=== PATIENT | female | born 1990 | race Hispanic/Latino ===

== ENCOUNTER 2017-05-22 17:33 | Observation (INO) | payer MEDICAID ==
[~2017-05-22] VITALS: Ht 154.9 cm; Wt 59.9 kg
[2017-05-22] VITALS (12 sets, daily range): BP systolic 106–117; BP diastolic 54–73
--- NOTE | 2017-05-22 17:20 | NUR ---
Received report from prior shift on patient. Patient here via EMS to OB unit. Patient claims she fell down 5 flights of steps. Patient states that she fell on her back and has pain on left side and back rating it a 7 on scale of 1 to 10.
[~2017-05-22 17:33] MED LIST: FERR SULFATE325 MG PO; LEVOTHYROXIN50 MCG PO; LEVOTHYROXIN75 MCG PO; LORTAB 5/3255 MG PO; PRENATABS FA PO; [UNRECOGNIZED DRUG - OTHER]
[2017-05-22 17:54] LABS: URINE BILIRUBIN - DIPSTICK NEGATIVE (NEGATIVE); URINE BLOOD DIPSTICK NEGATIVE (NEGATIVE); URINE CLARITY CLEAR; URINE COLOR YELLOW; URINE GLUCOSE - DIPSTICK NEGATIVE (NEGATIVE); URINE KETONE NEGATIVE (NEGATIVE); URINE LEUK ESTERASE TRACE (NEGATIVE); URINE NITRITE - DIPSTICK NEGATIVE (Negative); URINE PROTEIN - DIPSTICK NEGATIVE (NEG-TRACE); URINE UROBILINOGEN - DIPSTICK 0.2 E.U./dL (0.2)
[2017-05-22 17:56] LABS: BARBITURATES NEGATIVE (NEGATIVE); COCAINE NEGATIVE (NEGATIVE); METHADONE NEGATIVE (NEGATIVE); OXCYCODONE NEGATIVE (NEGATIVE); TETRAHYDROCANNABIONOL NEGATIVE (NEGATIVE); TRICYLIC ANTIDEPRESSANTS NEGATIVE (NEGATIVE)
--- NOTE | 2017-05-22 18:00 | NUR ---
Dr. Gill in room visiting with patient. Order for urine to be sent to check for blood and if all fine patient may be discharged to home.
--- NOTE | 2017-05-22 18:30 | NUR ---
Patient on external monitor. heart rate of 145, contractions every 2 to 3 minutes patient rates as 7 on scale of 1 to 10.
--- NOTE | 2017-05-22 18:45 | NUR ---
Report given to oncoming shift on patient.
--- NOTE | 2017-05-22 19:05 | NUR ---
1844: REPORT RECEIVED FROM MAGNO LÓPEZ RN ON PT STATUS. PT RESTING IN BED DRINKING PO FLUIDS. STATES SHE FEELS HER "STOMACH" TIGHTENING. MILD CONTRACTIONS NOTED. FETUS VERY ACTIVE. DENIES VAGINAL BLEEDING OR SROM. SISTER IN LAW INTERPRETS FOR THIS NURSE. 1904: DR. LARSON NOTIFIED OF PT STATUS. ORDERS RECEIVED.
--- NOTE | 2017-05-22 19:39 | NUR ---
193: Procardia 10mg po given per physicians orders. Lactated ringers bolus started per med pump. Orders received to give 1000 ml fluid. Pt denies feeling any contractions. No contractions palpated by RN. Fetus active. monitoring with poor tracing due to gestational age. 2013: Pt uses restroom. Voids 600 cc clear yellow urine.
--- NOTE | 2017-05-22 21:10 | NUR ---
Pt marking on strip when she feels the beginning of a contraction and marking when she feels the end. No contractions palpated by RN during these periods. According to pt's acosta, contractions are lasting 10-15 seconds in length. Fetus remains active. Fht's basing 145-150's.
--- NOTE | 2017-05-22 21:42 | NUR ---
Pt continues to contract. Orders received to keep pt overnight and continue to hydrate with IV fluids.
--- NOTE | 2017-05-22 22:00 | NUR ---
Pt has order for Vistaril 50mg po. Asks to wait to take medication. Sister in law Yolanda continues to interpret for RN.
[2017-05-23 01:15] VITALS: BP 101/61
--- NOTE | 2017-05-23 02:55 | NUR ---
Pt sleeping. IV infusing per med pump at 150cc/hr.
[2017-05-23 06:15] VITALS: BP 93/51
--- NOTE | 2017-05-23 06:20 | NUR ---
External monitor applied on LLQ. Mother holds US so reading of heart tones can be recorded. Fetus has hiccups inutero. Pt states fetus is moving. RN audibly hears heart tones of 140. IV continues to infuse at 150cc/hour per med pump. No complaints of pain.
--- NOTE | 2017-05-23 07:05 | NUR ---
patient lying in bed awake. denies pain, vaginal bleeding or leaking of amniotic fluid. abdomen palpate soft. admits to movement. awaiting ob ultrasound. patient has no concerns at this time. sister at bedside.
--- NOTE | 2017-05-23 07:05 | NUR ---
Bedside report given to Ivory Quinones RN on pt status.
[2017-05-23 08:20] VITALS: BP 102/57
--- NOTE | 2017-05-23 08:20 | NUR ---
off efm to void. no contractions palpated or monitored. continues to deny pain. will continue to monitor. took and tolerated breakfast.
--- NOTE | 2017-05-23 09:30 | NUR ---
off to go have ultrasound done in radiology dept.
--- NOTE | 2017-05-23 10:10 | NUR ---
PATIENT CONTINUES TO DENY PAIN OR VAGINAL BLEEDING. ABDOMEN PALPATE SOFT. DR LARSON NOTIFIED VIA CELL PHONE OF US REPORT. NO NEW ORDERS RECEIVED.
--- NOTE | 2017-05-23 10:10 | NUR ---
PATIENT BACK FROM RADIOLOGY DEPT IN ACCOMPANIED BY EDGER MACHINE SETTER. VERBAL REPORT RECEIVED FROM JESSICA EDGER MACHINE SETTER OF CX 5CM LONG, PLACENTA LOW LYING, 1CM FROM OS AND TRANVERSE FETUS. MD TO BE NOTIFIED OF SAME PRIOR TO DISCHARGE.
--- NOTE | 2017-05-23 10:20 | NUR ---
IV ACCESS REMOVED. INSTRUCTIONS GIVEN PER INSTRUCTIONS LESS THAN 37 WEEKS GESTATION. PATIENT INSTRUCTED TO RETURN TO HOSPITAL IMMEDIATELY FOR ANY VAGINAL BLEEDING, LEAKING OF AMNIOTIC FLUID, PAIN OR TRAUMA TO ABDOMEN. VERBALISE UNDERSTANDING OF SAME. ALSO INSTRUCTED TO CALL TO MAKE APPT TO BE SEEN IN OFFICE THIS WEEK. LEFT UNIT FOR HOME IN STABLE CONDITION ACCOMPANIED BY FAMILY, WITH ALL BELONGINGS.
== END 2017-05-23 10:20 | disposition home or self-care (01) | DRG 392 ==
LOC: OB 17:33 → OBOP 17:33 → OB 17:33 → OBOP 05-23 → OB 05-23 00:01
PROVIDERS: ADMIT Obstetrics & Gynecology; ATTEND Obstetrics & Gynecology
DX: R10.9 Unspecified abdominal pain (principal); Z33.1 Pregnant state, incidental; W10.9XXA Fall (on) (from) unspecified stairs and steps, initial encounter
CPT/HCPCS: G0378

== ENCOUNTER 2022-11-06 11:09 | Emergency (ER) | payer OTHER ==
[~2022-11-06] VITALS: Ht 154.9 cm; Wt 63.5 kg
[2022-11-06] VITALS (9 sets, daily range): BP systolic 105–135; BP diastolic 62–82
[2022-11-06 11:38] LABS: BASO% 0.6 % (0-3); EOS% 2.4 % (0-8); IMMATURE GRANULOCYTES 0.7 % (0.0-5.0); LYMPH% 53.7 % (15-41); MEAN CORPUSCULAR HGB 29.3 pG CALC (26.0-32.0); MONO% 7.3 % (2-13); NEUT# 3.63 thou/uL (2.00-7.15); NEUT% 35.3 % (42-76); RED BLOOD COUNT 4.34 mill/uL (4.20-5.60); RED CELL DISTRI WIDTH 12.5 % (11.5-15.5)
[2022-11-06 11:39] LABS: HEMATOCRIT 38.5 % (37.0-47.0); HEMOGLOBIN 12.7 g/dl (12.0-16.0); MEAN CELL VOLUME 88.7 fL CALC (80.0-100.0)
[2022-11-06 11:48] LABS: ALBUMIN 4.9 g/dL (3.2-5.0); ALKALINE PHOSPHATASE 90 u/l (38-126); ANION GAP 15 (6-22 (CALC)); BILIRUBIN, TOTAL 0.1 mg/dL (0.02-1.3); BUN 12 mg/dL (7-17); BUN/CREATININE RATIO 18 (12-20 (CALC)); CARBON DIOXIDE 25 mmol/l (22-30); CHLORIDE 101 mmol/l (95-108); CREATININE 0.7 mg/dL (0.5-1.0); GFR FOR AFR.AMER. > 60 ML/MIN (>=60 (CALC)); GFR OTHER RACES > 60 ML/MIN (>=60 (CALC)); LIPASE 179 u/l (23-300); POTASSIUM 3.4 mmol/l (3.5-5.1); SGOT/AST 31 u/l (14-36); SODIUM 138 mmol/l (137-146); TOTAL PROTEIN 8.1 g/dL (6.3-8.2)
[2022-11-06 12:26] LABS: URINE BILIRUBIN - DIPSTICK NEGATIVE (NEGATIVE); URINE BLOOD DIPSTICK TRACE-INTACT (NEGATIVE); URINE GLUCOSE - DIPSTICK NEGATIVE (NEGATIVE); URINE KETONE NEGATIVE (NEGATIVE); URINE LEUK ESTERASE NEGATIVE (NEGATIVE); URINE PROTEIN - DIPSTICK NEGATIVE (NEG-TRACE); URINE SPECIFIC GRAVITY <=1.005; URINE UROBILINOGEN - DIPSTICK 0.2 E.U./dL (0.2)
[2022-11-06 12:27] LABS: URINE COLOR STRAW; URINE NITRITE - DIPSTICK NEGATIVE (Negative)
== END 2022-11-06 14:02 | disposition home or self-care (01) ==
LOC: ED 11:09
PROVIDERS: Nurse Practitioner
DX: R55 Syncope and collapse (principal); E03.9 Hypothyroidism, unspecified
CPT/HCPCS: J2060